=== PATIENT | male | born 1945 | race Caucasian/White ===

== ENCOUNTER 2019-06-20 10:12 | Day surgery (SDC) | payer MEDICARE ==
[~2019-06-20] VITALS: Ht 182.9 cm; Wt 117.9 kg
[2019-06-20] VITALS (8 sets, daily range): BP systolic 125–139; BP diastolic 71–90
[2019-06-20] MEDS ORDERED: normal saline 1,000 ML IV SCH (10:50)
[2019-06-20] MEDS ORDERED: diphenhydrAMINE 25mg capsule PO PRN (10:50)
[2019-06-20 11:13] LABS: BASOPHILS % (AUTO) 0.7 % (0-1); EOSINOPHILS # (AUTO) 0.2 X10'3 (0-0.9); EOSINOPHILS % (AUTO) 3.3 % (0-6); HEMATOCRIT 42.8 % (42.0-52.0); HEMOGLOBIN 14.5 g/dl (14.0-17.9); LYMPHOCYTES # (AUTO) 1.3 X10'3 (1.1-4.8); LYMPHOCYTES % (AUTO) 23.5 % (21-51); MEAN CORPUSCULAR HEMOGLOBIN 32.8 PG (27.0-31.0); MEAN CORPUSCULAR HGB CONC 33.9 g/dL (33.0-36.5); MEAN CORPUSCULAR VOLUME 96.8 FL (78-98); MEAN PLATELET VOLUME 8.2 FL (7.4-10.4); MONOCYTES # (AUTO) 0.7 X10'3 (0-0.9); MONOCYTES % (AUTO) 11.9 % (2-12); NEUTROPHILS # (AUTO) 3.4 X10'3 (1.8-7.7); NEUTROPHILS % (AUTO) 60.6 % (42-75); PLATELET COUNT 127 X10'3 (140-440); RED BLOOD COUNT 4.42 X10'6 (4.70-6.10); RED CELL DISTRIBUTION WIDTH 13.1 % (11.5-14.5); WHITE BLOOD COUNT 5.6 X10'3 (4.5-11.0)
[2019-06-20 11:29] LABS: ALBUMIN 4.3 G/DL (3.4-5.0); ANION GAP 8 (8-16); BLOOD UREA NITROGEN 28 MG/DL (7-18); CALCIUM 8.9 MG/DL (8.5-10.1); CHLORIDE 103 MMOL/L (99-107); GLUCOSE 131 MG/DL (70-104); POTASSIUM 4.2 MMOL/L (3.5-5.1); SODIUM 141 MMOL/L (135-145); TOTAL CARBON DIOXIDE 29.9 MMOL/L (24-32); eGFR 49 ML/MIN
[2019-06-20] MEDS ORDERED: NAPR-996 PO (11:32)
[2019-06-20] MEDS ORDERED: CLOP75TA35 PO (11:32)
[2019-06-20] MEDS ORDERED: DILT360C38 PO (11:32)
[2019-06-20] MEDS ORDERED: ZOLP10TA PO (11:32)
[2019-06-20] MEDS ORDERED: OMEP-50 PO (11:32)
[2019-06-20] MEDS ORDERED: HYDR25TA4 PO (11:32)
[2019-06-20] MEDS ORDERED: ROSU10TA28 PO (11:32)
[2019-06-20] MEDS ORDERED: ASPI-611 PO (11:32)
[2019-06-20] MEDS ORDERED: FLUT16SP2 BOTHNARES (11:38)
[2019-06-20] MEDS ORDERED: CHOL500061 PO (11:38)
[2019-06-20] MEDS ORDERED: MULT-1172 (11:38)
[2019-06-20] MEDS ORDERED: OMEG-15 PO (11:38)
[2019-06-20] MEDS ORDERED: iohexol 350 MG/ML 50ML vial IV ONE (11:41)
[2019-06-20] MEDS ORDERED: iohexol 350MG/ML 100ml bottle IV ONE ×2 (11:41→12:43)
[2019-06-20] MEDS ORDERED: LIDOcaine 1% (10mg/ml)w/preservative injection 20ml MDV ONE (11:41)
[2019-06-20] MEDS ORDERED: midazolam 2 mg/2 ml injection ONE ×3 (11:41→12:36)
[2019-06-20] MEDS ORDERED: fentaNYL/PF 50MCG/1 ML 2ML syringe ONE ×2 (11:41→12:36)
[2019-06-20] MEDS ORDERED: sodium bicarbonate (8.4%) inj. 75 ML in dextrose 5% water 500ml 500 ML IV SCH (11:55)
--- NOTE | 2019-06-20 12:00 | NUR ---
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
[2019-06-20] MEDS ORDERED: proCHLORperazine 10 MG/2 ml inj ONE (12:36)
[2019-06-20] MEDS ORDERED: heparin 1,000unit/ml 10ml vial 10 ML ONE (12:37)
[2019-06-20] MEDS ORDERED: clopidogrel 300mg tablet ONE (12:57)
--- NOTE | 2019-06-20 13:15 | NUR ---
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 Pt awake, alert & in no acute distress. Dressing to R groin CDI, no S&S hematoma present. Vital signs obtained, pt educated on importance of remaining flat. Dorsalis pedal pulses present using doppler. Pt offered sandwich & water & urinal. Will continue to closely monitor.
[2019-06-20] MEDS ORDERED: normal saline 1000ml 1,000 ML IV SCH (13:35)
[2019-06-20] MEDS ORDERED: ondansetron/PF 4mg/2ml inj IV PRN (13:35)
[2019-06-20] MEDS ORDERED: HYDROcodone/acetaminophen 10/325mg tab PO PRN (13:35)
[2019-06-20] MEDS ORDERED: proCHLORperazine 10 MG/2 ml inj IV PRN (13:35)
[2019-06-20] MEDS ORDERED: HYDROcodone/acetaminophen 5mg/325mg tablet PO PRN (13:35)
== END 2019-06-20 16:30 | disposition home or self-care (01) ==
LOC: SSTAY O 10:12
PROVIDERS: ATTEND Internal Medicine Cardiovascular Disease
DX: R94.39 Abnormal result of other cardiovascular function study (principal); I25.10 Atherosclerotic heart disease of native coronary artery without angina pectoris; I25.2 Old myocardial infarction; I10 Essential (primary) hypertension; M19.90 Unspecified osteoarthritis, unspecified site; E78.00 Pure hypercholesterolemia, unspecified; K21.9 Gastro-esophageal reflux disease without esophagitis; Z95.5 Presence of coronary angioplasty implant and graft; Z79.899 Other long term (current) drug therapy; Z79.82 Long term (current) use of aspirin
CPT/HCPCS: 36415; 80048; 83735; 85025; 85610; 93458; 99152; 99153; C1725; C1769; C1874; C1894; C9600; J0780; J1644; J2001; J2250; J3010; J7030; Q0163; Q9967; A6258; C1751; C1760